=== PATIENT | female | born 1970 | race Caucasian/White ===

== ENCOUNTER 2021-02-15 18:57 | Emergency (ER) | payer SELFPAY ==
[2021-02-16 16:21] LABS: SARS-CoV-2 PCR by NAA Not Detected (NotDetected)
== END 2021-02-15 19:45 | disposition home or self-care (01) ==
LOC: NAV ERS 18:57
DX: B34.9 Viral infection, unspecified (principal); Z20.822 Contact with and (suspected) exposure to COVID-19
CPT/HCPCS: 99283; U0003; U0005